=== PATIENT | male | born 1955 | race African-American/Black ===

== ENCOUNTER 2018-06-28 09:32 | Inpatient (IN) | payer MEDICARE, MEDICAID ==
[~2018-06-28] VITALS: Ht 182.9 cm; Wt 65.8 kg
[~2018-06-28 09:32] MED LIST: ALBU05 NEB; HYDR-519 PO; OXCA150T5; QUET100T
[2018-06-28] MEDS ORDERED: MORPHINE SULFATE 4 MG/ML CPJ (NOT FOR IM USE) IV STA (09:54)
[2018-06-28] MEDS ORDERED: ONDANSETRON HCL 4MG/2ML INJ IV STA (09:54)
[2018-06-28] MEDS ORDERED: SODIUM CHLORIDE 0.9% 1,000 ML IV ONE (09:54)
[2018-06-28 11:00] LABS: BASOPHILS % 1.5 % (0.0-2.0); EOSINOPHILS % 2.2 % (0.0-5.0); HEMATOCRIT. 43.8 % (42.0-52.0); HEMOGLOBIN. 14.4 g/dL (14.0-18.0); LYMPHOCYTES % 34.8 % (20.0-50.0); MEAN CORPUSCULAR HEMOGLOBIN 29.3 pg (28.0-32.0); MEAN CORPUSCULAR VOLUME 88.9 fL (80.0-94.0); MONOCYTES % 11.5 % (2.0-8.0); PLATELET 166 x1000/uL (130-400); RED BLOOD CELL COUNT 4.93 mill/uL (4.7-6.1); RED CELL DISTRIBUTION WIDTH 13.6 % (11.6-14.6)
[2018-06-28 11:10] LABS: CHLORIDE 103 mEq/L (98-107); ETHANOL BLOOD < 10 mg/dL
[2018-06-28 11:16] LABS: PARTIAL THROMBOPLASTIN TIME 28.6 sec (23.4-31.0)
[2018-06-28] MEDS ORDERED: MORPHINE SULFATE 4 MG/ML CPJ (NOT FOR IM USE) IV ONE (13:30)
[2018-06-28] MEDS ORDERED: ONDANSETRON HCL 4MG/2ML INJ IV ONE (13:30)
[2018-06-28 15:17] LABS: BASOPHILS % 1.3 % (0.0-2.0); EOSINOPHILS % 1.2 % (0.0-5.0); HEMATOCRIT. 40.8 % (42.0-52.0); HEMOGLOBIN. 13.5 g/dL (14.0-18.0); LYMPHOCYTES % 36.7 % (20.0-50.0); MEAN CORPUSCULAR HEMOGLOBIN 29.4 pg (28.0-32.0); MEAN CORPUSCULAR VOLUME 88.5 fL (80.0-94.0); MEAN PLATELET VOLUME 8.6 fl (7.4-10.4); MONOCYTES % 10.6 % (2.0-8.0); NEUTROPHILS % 50.2 % (40.0-76.0); PLATELET 153 x1000/uL (130-400); RED BLOOD CELL COUNT 4.61 mill/uL (4.7-6.1); RED CELL DISTRIBUTION WIDTH 13.5 % (11.6-14.6)
[2018-06-28 15:25] LABS: CLARITY URINE CLEAR (CLEAR); COLOR URINE YELLOW (YELLOW); KETONES URINE 2+ (NEGATIVE); LEUKOCYTE ESTERASE URINE NEGATIVE (NEGATIVE); NITRITE URINE NEGATIVE (NEGATIVE); OCCULT BLOOD URINE NEGATIVE (NEGATIVE); PROTEIN URINE NEGATIVE (NEGATIVE); SPECIFIC GRAVITY URINE 1.027 (1.005-1.030); UROBILINOGEN URINE 0.2 E.U./dL (0.2-1.0)
[2018-06-28 15:44] LABS: *AMPHETAMINES SCREEN URINE NEGATIVE (NEGATIVE); *BARBITURATES SCREEN URINE NEGATIVE (NEGATIVE); *BENZODIAZEPINES SCREEN URINE NEGATIVE (NEGATIVE); *COCAINE SCREEN URINE NEGATIVE (NEGATIVE)
[2018-06-28 15:45] LABS: CANNABINOID URINE SCREEN PRESUMTIVE POSITIVE (NEGATIVE); METHADONE URINE SCREEN NEGATIVE (NEGATIVE); OPIATES URINE SCREEN PRESUMTIVE POSITIVE (NEGATIVE); PHENCYCLIDINE URINE SCREEN NEGATIVE (NEGATIVE)
[2018-06-28] MEDS ORDERED: ONDANSETRON HCL 4MG/2ML INJ IV PRN (22:30)
[2018-06-28] MEDS ORDERED: MAGNESIUM/ALUMINUM HYDROXIDE/SIMETHICONE 30ML UDC PO PRN (22:30)
[2018-06-28] MEDS ORDERED: ACETAMINOPHEN 325MG TABLET PO PRN (22:30)
[2018-06-28] MEDS ORDERED: MORPHINE SULFATE 4 MG/ML CPJ (NOT FOR IM USE) IV PRN (22:30)
[2018-06-28 23:25] VITALS: BP 110/64
[2018-06-28] MEDS ORDERED: SODIUM CHLORIDE 0.45% 1,000 ML IV SCH (23:45)
[2018-06-29 00:23] VITALS: BP 110/64
[2018-06-29] MEDS: HYDROCODONE/ACETAMINOPHEN 5/325MG TABLET PO PRN ×2 (01:01→06:55)
[2018-06-29 04:00] VITALS: BP 116/68
[2018-06-29 06:42] LABS: BASOPHILS % 0.8 % (0.0-2.0); EOSINOPHILS % 2.9 % (0.0-5.0); HEMATOCRIT. 39.3 % (42.0-52.0); HEMOGLOBIN. 13.1 g/dL (14.0-18.0); LYMPHOCYTES % 35.7 % (20.0-50.0); MEAN CORPUSCULAR HEMOGLOBIN 29.4 pg (28.0-32.0); MEAN CORPUSCULAR VOLUME 88.4 fL (80.0-94.0); MEAN PLATELET VOLUME 8.9 fl (7.4-10.4); MONOCYTES % 13.3 % (2.0-8.0); NEUTROPHILS % 47.3 % (40.0-76.0); PLATELET 144 x1000/uL (130-400); RED BLOOD CELL COUNT 4.45 mill/uL (4.7-6.1); RED CELL DISTRIBUTION WIDTH 13.6 % (11.6-14.6)
[2018-06-29] MEDS ORDERED: PANTOPRAZOLE 40MG DR TABLET PO SCH (07:10)
[2018-06-29 07:59] LABS: CHLORIDE 103 mEq/L (98-107)
[2018-06-29 08:40] VITALS: BP 112/68
[2018-06-29 12:25] VITALS: BP 107/54
[2018-06-29 14:30] VITALS: BP 107/54
== END 2018-06-29 16:30 | disposition home or self-care (01) | DRG 395 ==
LOC: ER 09:32 → 8WST 13:40 → EDBEDREQ 13:44 → EDBEDREQSVC 16:05 → ENRESERV 22:20
PROVIDERS: ADMIT Hospitalist; ATTEND Hospitalist
DX: K64.4 Residual hemorrhoidal skin tags (principal); K64.8 Other hemorrhoids; F20.9 Schizophrenia, unspecified; I10 Essential (primary) hypertension; I25.10 Atherosclerotic heart disease of native coronary artery without angina pectoris; M54.30 Sciatica, unspecified side; K62.3 Rectal prolapse; K62.89 Other specified diseases of anus and rectum; Z86.010 Personal history of colon polyps; Z95.0 Presence of cardiac pacemaker; Z88.6 Allergy status to analgesic agent; Z79.899 Other long term (current) drug therapy
CPT/HCPCS: 36415; 71045; 74176; 80053; 80305; 81003; 83880; 84484; 85025; 85610; 85730; 93005; 96361; 96374; 96375; 96376; 99285; G0482; J2270; J2405; J7030

== ENCOUNTER 2019-05-03 23:08 | Emergency (ER) | payer MEDICARE, MEDICAID ==
[~2019-05-03] VITALS: Ht 182.9 cm; Wt 65.7 kg
[~2019-05-03 23:08] MED LIST changes: -HYDR-519 PO
[2019-05-04 04:45] VITALS: BP 120/69
[2019-05-04] MEDS ORDERED: KETOROLAC 60MG/2ML VIAL IM ONE (04:45)
== END 2019-05-04 04:56 | disposition home or self-care (01) ==
LOC: ER 23:08
DX: S39.012A Strain of muscle, fascia and tendon of lower back, initial encounter (principal); G89.29 Other chronic pain; Z98.890 Other specified postprocedural states; Z79.899 Other long term (current) drug therapy; Z95.0 Presence of cardiac pacemaker; V89.2XXA Person injured in unspecified motor-vehicle accident, traffic, initial encounter; Y93.89 Activity, other specified; Y92.89 Other specified places as the place of occurrence of the external cause; Y99.8 Other external cause status
CPT/HCPCS: 99283; J1885

== ENCOUNTER 2020-02-02 00:09 | Emergency (ER) | payer MEDICARE, MEDICAID ==
[~2020-02-02] VITALS: Ht 182.9 cm; Wt 73.0 kg
[2020-02-02] MEDS ORDERED: TETANUS, DIPHTHERIA, PERTUSSIS VAC/PF 0.5ML (>7YR OLD) IM ONE (02:15)
[2020-02-02] MEDS ORDERED: LIDOCAINE 1%/EPI 1:100,000 10 ML VIAL IJ ONE (02:15)
[2020-02-02] MEDS ORDERED: BACITRACIN ZINC OINT UDPKT TOP ONE (02:15)
[2020-02-02] MEDS ORDERED: LIDOCAINE HCL/EPINEPHRINE 1%-EPI 1:100,000 20 ML VIAL INFIL NR (02:30)
[2020-02-02 05:48] VITALS: BP 119/76
== END 2020-02-02 05:51 | disposition home or self-care (01) ==
LOC: ER 00:09
DX: S01.112A Laceration without foreign body of left eyelid and periocular area, initial encounter (principal); I10 Essential (primary) hypertension; J45.909 Unspecified asthma, uncomplicated; Z95.0 Presence of cardiac pacemaker; Z88.6 Allergy status to analgesic agent; Z87.39 Personal history of other diseases of the musculoskeletal system and connective tissue; Y04.0XXA Assault by unarmed brawl or fight, initial encounter; Y93.89 Activity, other specified; Y92.524 Gas station as the place of occurrence of the external cause; Y99.8 Other external cause status
CPT/HCPCS: 90471; 90715; 99283; J3490

== ENCOUNTER 2020-02-15 13:57 | Emergency (ER) | payer MEDICARE, MEDICAID ==
[~2020-02-15] VITALS: Ht 182.9 cm; Wt 76.0 kg
[2020-02-15 16:54] VITALS: BP 119/75
== END 2020-02-15 17:36 | disposition home or self-care (01) ==
LOC: ER 13:57
DX: S01.112D Laceration without foreign body of left eyelid and periocular area, subsequent encounter (principal); J45.909 Unspecified asthma, uncomplicated; Z88.6 Allergy status to analgesic agent; Z79.899 Other long term (current) drug therapy; Z48.02 Encounter for removal of sutures; X58.XXXD Exposure to other specified factors, subsequent encounter
CPT/HCPCS: 99281

== ENCOUNTER 2020-03-11 14:42 | Emergency (ER) | payer MEDICARE, MEDICAID ==
[~2020-03-11] VITALS: Ht 182.9 cm; Wt 64.0 kg
[2020-03-11 17:22] LABS: CHLORIDE 108 mEq/L (98-107); EOSINOPHILS % 1.8 % (0.0-5.0); HEMATOCRIT. 46.4 % (42.0-52.0); HEMOGLOBIN. 15.6 g/dL (14.0-18.0); LYMPHOCYTES % 38.6 % (20.0-50.0); MEAN CORPUSCULAR HEMOGLOBIN 30.1 pg (28.0-32.0); MEAN CORPUSCULAR VOLUME 89.2 fL (80.0-94.0); MONOCYTES % 11.5 % (2.0-8.0); NEUTROPHILS % 47.1 % (40.0-76.0); RED CELL DISTRIBUTION WIDTH 13.4 % (11.6-14.6)
[2020-03-11 17:50] LABS: PLATELET 158 x1000/uL (130-400)
[2020-03-11 17:51] LABS: PLATELET ESTIMATE NORMAL
[2020-03-11 19:02] VITALS: BP 120/60
[2020-03-11 19:05] LABS: INR 2.6; PROTHROMBIN TIME 26.4 sec (9.6-11.0)
== END 2020-03-11 19:04 | disposition home or self-care (01) ==
LOC: ER 14:42
DX: L03.031 Cellulitis of right toe (principal); R26.81 Unsteadiness on feet; M54.16 Radiculopathy, lumbar region; M19.90 Unspecified osteoarthritis, unspecified site; Z88.6 Allergy status to analgesic agent; Z95.0 Presence of cardiac pacemaker
CPT/HCPCS: 36415; 71045; 73660; 80053; 83880; 84484; 85025; 93005; 99285